=== PATIENT | female | born 1950 | race Hispanic/Latino ===

== ENCOUNTER 2017-12-22 05:35 | Day surgery (SDC) | payer MEDICARE ==
[2017-12-22] VITALS (13 sets, daily range): BP systolic 138–163; BP diastolic 69–88
[~2017-12-22] VITALS: Ht 154.9 cm; Wt 50.8 kg
[~2017-12-22 05:35] MED LIST: ASPI-555 PO; ATOR40TA71 PO; DONE10TA43 PO; GLIP2.5T PO; LEVO25TA54 PO; SITA100T12 PO; TRAZ-185 PO
[2017-12-22] MEDS ORDERED: SODIUM CHLORIDE 0.9% 1000ML 1,000 ML IV ONE (05:47)
[2017-12-22] MEDS ORDERED: PROPOFOL 10 MG/ML 20ML VIAL IV ONE ×2 (06:41→06:42)
[2017-12-22] MEDS ORDERED: SUCCINYLCHOLINE CHLORIDE 20 MG/ML 10 ML VIAL ONE (06:42)
[2017-12-22] MEDS ORDERED: GLUCAGON 1MG KIT 1 MG ML ONE (07:22)
[2017-12-22] MEDS ORDERED: PHENYLEPHRINE HCL 10 MG/ML 1ML VIAL IV ONE (07:23)
[2017-12-22] MEDS ORDERED: INDOMETHACIN 50 MG SUPP.RECT RC SCH (07:30)
[2017-12-22] MEDS ORDERED: IOHEXOL-350 50ML VIAL IV ONE (07:43)
== END 2017-12-22 09:20 | disposition home or self-care (01) ==
LOC: DAH 05:35 → ENDO 05:35
PROVIDERS: ATTEND Internal Medicine
DX: Z46.59 Encounter for fitting and adjustment of other gastrointestinal appliance and device (principal); K80.50 Calculus of bile duct without cholangitis or cholecystitis without obstruction; I25.10 Atherosclerotic heart disease of native coronary artery without angina pectoris; E11.9 Type 2 diabetes mellitus without complications; I25.2 Old myocardial infarction; E03.9 Hypothyroidism, unspecified; Z86.73 Personal history of transient ischemic attack (TIA), and cerebral infarction without residual deficits; Z90.49 Acquired absence of other specified parts of digestive tract; Z95.1 Presence of aortocoronary bypass graft
CPT/HCPCS: 43262; 43275; 74328; 74330; 82948; 93005; A4606; C1769; C1773; J0330; J1610; J2370; J2704; J7030; Q9967